=== PATIENT | female | born 1950 | race Caucasian/White ===

== ENCOUNTER 2018-02-21 16:41 | Outpatient (REF) | payer MEDICARE, MEDICAID, SELFPAY ==
--- NOTE | 2018-02-21 15:30 | PAPFT_PTH ---
PATIENT: Ángela Payan LOC: [facility] U#:[id number] AGE/SX: 67/F ROOM: RE02/21/[address]: Priya Rice MD, DC : 1950 BED: DIS: 02/21/2018 SPEC #: [id number] RECD: 02/21/18 18:30 STATUS: SHELBI REQ #: [id number] MICHAEL: 02/21/18 15:[address]: Priya Rice DEPT: [facility] Cytology RECD BY: Juliane Mike Tissues: 1 - CX/ENDOCX FOR PAP SMEARS Procedures: PAP THIN PREP/UVM Screening HPV DNA PROBE Comments: [id number]
== END 2018-02-21 17:01 ==
LOC: LBN 16:41
PROVIDERS: PCP Family Medicine; Visit Provider Family Medicine
DX: Z12.4 Encounter for screening for malignant neoplasm of cervix (principal); Z11.51 Encounter for screening for human papillomavirus (HPV)
CPT/HCPCS: 88142; 87624

== ENCOUNTER 2018-02-28 00:45 | Outpatient (CLI) | payer MEDICARE, MEDICAID, SELFPAY ==
--- NOTE | 2018-02-28 15:30 | DI.MAMMO_ITS ---
SYMPTOM/DIAGNOSIS: SCREENING MAMMOGRAM MAMMOGRAM: 02/28 Mammograms were interpreted according to the usual protocol including computer analysis with CAD system, tomosynthesis and C view imaging. The breasts are of moderate density with fairly symmetrical distribution of fibroglandular tissue. No dominant mass or clumped microcalcification is identified in either breast. The current examination is compared with previous examinations including 01/2017 and there has been no gross interval change in appearance in comparison with the previous studies. CONCLUSION: No specific evidence of malignancy at this time. Routine screening examinations are suggested at yearly intervals in this age group according to the ACS/ACR guidelines. Category 1, breast density category B. MQSA ASSESSMENT OF FINDINGS: Negative. Category 1. Patient will receive a letter notifying them of these results. BI-RADS category B. There are scattered areas of fibroglandular density.
[2018-02-28 15:46] LABS: ALT 26 U/L (12-78); AST 17 U/L (15-37); Albumin 4.3 g/dL (3.4-5.0); Alkaline Phosphatase 67 U/L (46-116); Anion Gap 9.4 mmol/L (3-11); BUN 14 mg/dL (7-18); Bilirubin, Total 0.5 mg/dL (0.2-1.0); CO2 27.6 mmol/L (21.0-32.0); Calcium 9.1 mg/dL (8.5-10.1); Chloride 101 mmol/L (98-107); Cholesterol 220 mg/dL (50-200); Glucose 100 mg/dL (70-100); HDL Cholesterol 41 mg/dL (40-60); LDL CHOLESTEROL 150 mg/dL (<100); Potassium 4.6 mmol/L (3.5-5.1); Sodium 138 mmol/L (136-145); TSH (W/Ref FT4) 2.98 uIU/mL (0.358-3.74); Total Protein 7.8 g/dL (6.4-8.2); Triglyceride 176 mg/dL (30-150)
== END 2018-02-28 01:05 ==
PROVIDERS: PCP Family Medicine; Visit Provider Family Medicine
DX: E78.5 Hyperlipidemia, unspecified (principal); R74.0 Nonspecific elevation of levels of transaminase and lactic acid dehydrogenase [LDH]; Z12.31 Encounter for screening mammogram for malignant neoplasm of breast; I10 Essential (primary) hypertension; E03.9 Hypothyroidism, unspecified; Z72.89 Other problems related to lifestyle
CPT/HCPCS: 36415; 77063; 77067; 80053; 80061; 83721; 84443

== ENCOUNTER 2018-05-12 01:34 | Outpatient (CLI) | payer MEDICARE, SELFPAY ==
--- NOTE | 2018-05-12 10:54 | DI.RAD_ITS ---
SYMPTOM/DIAGNOSIS: PRIMARY OA LT HIP, M15.12 HIP INJECTION: Fluoroscopy Time: 3 SEC Fluoroscopy was utilized by Dr. Handley during the performance of a left hip injection. Please refer to the procedure report for complete details.
[2018-05-12] MEDS: methylPREDNISolone ACETATE 80 MG/ML VIAL IM (10:56)
[2018-05-12] MEDS: Omnipaque 300 MG/ML 10 ML BTL IJ (10:56)
[2018-05-12] MEDS: Bupivacaine 0.5% Pres-Free 30 ML VIAL IJ (10:57)
--- NOTE | 2018-05-12 11:38 | W.PROCNOTE ---
Date of service: 05/12/18 Time of Service: 11:38 Procedure Note Date of procedure: 05/12/18 Procedure: Left Hip Injection with Fluoroscopic Guidance Surgeon/Proceduralist/Physician: Man Handley Procedure Diagnosis: Left Hip Osteoarthritis Procedure Indications: Ángela has had persistent pain of the LEFT hip and groin. Noninvasive measures have been tried and previous injection provided nearly 6 months relief. An injection under fluoroscopy was recommended. I had discussed the risks of the procedure and the patient elected to proceed. Procedure Description: Ángela was greeted in the flouroscopy room. The correct side was identified and the consent was reviewed with the patient and signed. The patient was then placed in the supine position on the fluoroscopy table. The LEFT hip was then prepped with Chloraprep. The anterolateral injection starting point was identiifed by bony landmarks and fluoroscopy. The skin and soft tissue in the tract of the injection was anesthetized with 1% Lidocaine. A spinal needle was then inserted deep into the hip joint at the level of the lateral femoral neck under fluoroscopic guidance. A small amount of Omnipaque solution was injected to confirm intraarticular placement. Once confirmed, the hip was injected with 6cc of 0.5% Bupivicaine and 80mg of Depo-Medrol. A bandaid was placed on the injection site. The patient tolerated the procedure well and noted improvement in pre-injection pain.
== END 2018-05-12 01:54 ==
PROVIDERS: PCP Family Medicine; Visit Provider Student in an Organized Health Care Education/Training Program
DX: M25.552 Pain in left hip (principal); M16.12 Unilateral primary osteoarthritis, left hip
CPT/HCPCS: 20610; 77002; J1040

== ENCOUNTER 2018-10-06 01:30 | Outpatient (CLI) | payer MEDICARE, SELFPAY ==
--- NOTE | 2018-10-06 07:06 | DI.RAD_ITS ---
SYMPTOM/DIAGNOSIS: LT HIP PAIN M25,552, LT HIP INJECTION FLUOROSCOPY: Fluoroscopy Time: 2 seconds Fluoroscopy was utilized by Dr. Handley during left hip injection. Hard copy shows intra-articular injection of the left hip.
[2018-10-06] MEDS: Omnipaque 300 MG/ML 10 ML BTL IJ (13:11)
[2018-10-06] MEDS: Bupivacaine 0.5% Pres-Free 10 ML VIAL 6 ML IJ (13:12)
[2018-10-06] MEDS: methylPREDNISolone ACETATE 80 MG/ML VIAL IM (13:14)
--- NOTE | 2018-10-06 15:43 | OPPNE_ITS ---
Date of service: 10/06/18 Time of Service: 10:42 Procedure Note Date of procedure: 10/06/18 Procedure: Left Hip Injection with Fluoroscopic Guidance Surgeon/Proceduralist/Physician: Man Handley Procedure Diagnosis: Left Hip Osteoarthritis Procedure Indications: Ángela has had persistent pain of the LEFT hip and groin. Noninvasive measures have been tried. To serve as both diagnostic and therapeutic, an injection under fluoroscopy was recommended initially and she received excellent results. Given return of her symptoms she desired a repeat injection.. I had discussed the risks of the procedure and the patient elected to proceed. Procedure Description: Ángela was greeted in the flouroscopy room. The correct side was i dentified and the consent was reviewed with the patient and signed. The patient was then placed in the supine position on the fluoroscopy table. The LEFT hip was then prepped with Chloraprep. The anterolateral injection starting point was identiifed by bony landmarks and fluoroscopy. The skin and soft tissue in the tract of the injection was anesthetized with 1% Lidocaine. A spinal needle was then inserted deep into the hip joint at the level of the lateral femoral neck under fluoroscopic guidance. A small amount of Omnipaque solution was injected to confirm intraarticular placement. Once confirmed, the hip was injected with 6cc of 0.5% Bupivicaine and 80mg of Depo-Medrol. A bandaid was placed on the injection site. The patient tolerated the procedure well and noted improvement in pre-injection pain.
== END 2018-10-06 01:50 ==
PROVIDERS: PCP Family Medicine; Visit Provider Student in an Organized Health Care Education/Training Program
DX: M25.552 Pain in left hip (principal); M16.12 Unilateral primary osteoarthritis, left hip
CPT/HCPCS: 20610; 77002; J1040

== ENCOUNTER 2019-02-23 10:32 | Outpatient (CLI) | payer MEDICARE, MEDICAID, SELFPAY ==
[2019-02-23 13:25] LABS: ALT 26 U/L (14-59); AST 16 U/L (15-37); Albumin 4.2 g/dL (3.4-5.0); Alkaline Phosphatase 53 U/L (46-116); Anion Gap 7.4 mmol/L (3-11); BUN 23 mg/dL (7-18); Bilirubin, Total 0.3 mg/dL (0.2-1.0); CO2 30.6 mmol/L (21.0-32.0); CREATININE 0.84 mg/dL (0.55-1.02); Calcium 9.4 mg/dL (8.5-10.1); Calculated LDL 132 mg/dL; Chloride 102 mmol/L (98-107); Cholesterol 200 mg/dL (50-200); GGT 51 U/L (5-55); Glucose 95 mg/dL (70-100); HDL Cholesterol 37 mg/dL (40-60); Potassium 4.4 mmol/L (3.5-5.1); Sodium 140 mmol/L (136-145); TSH (W/Ref FT4) 1.99 uIU/mL (0.36-3.74); Total Protein 7.3 g/dL (6.4-8.2); Triglyceride 158 mg/dL (30-150)
== END 2019-02-23 10:52 ==
PROVIDERS: PCP Family Medicine; Visit Provider Family Medicine
DX: E03.9 Hypothyroidism, unspecified (principal); I10 Essential (primary) hypertension; R74.0 Nonspecific elevation of levels of transaminase and lactic acid dehydrogenase [LDH]
CPT/HCPCS: 36415; 80053; 80061; 82977; 84443

== ENCOUNTER 2019-07-17 14:38 | Outpatient (CLI) | payer MEDICARE, SELFPAY ==
--- NOTE | 2019-07-17 14:30 | DI.RAD_ITS ---
EXAM: XR PELVIS AP INDICATION: PRE LESTER PLANNING. TECHNIQUE: 2D digital imaging was performed. FINDINGS: In the left hip, there are degenerative changes characterized by joint space narrowing, subchondral s clerosis, and periarticular spurring. There has been progression of the degenerative changes since 0 08/30/2017. The right hip joint space is well maintained. Vascular calcifications are seen in the so ft tissues IMPRESSION: Moderately severe degenerative changes in the left hip.
== END 2019-07-17 14:58 ==
PROVIDERS: PCP Family Medicine; Referring Provider Family Medicine; Visit Provider Student in an Organized Health Care Education/Training Program
DX: M25.552 Pain in left hip (principal); M16.12 Unilateral primary osteoarthritis, left hip; I10 Essential (primary) hypertension
CPT/HCPCS: 99213; 72170

== ENCOUNTER 2019-08-07 09:53 | Outpatient (CLI) | payer MEDICARE, MEDICAID, SELFPAY ==
[2019-08-07 12:08] LABS: HCT 44.9 % (36.0-46.0); HGB 14.5 g/dL (12.0-15.5); Mean Corp. HGB Concentration 32.3 g/dL (32.0-36.0); Mean Corpuscular Hemoglobin 30.1 pg (27.0-33.0); Mean Corpuscular Volume 93.2 fL (80-95); Mean Platelet Volume 9.6 fL (8.0-11.0); Platelet Count 381 x1000/uL (130-400); RBC 4.82 m/cumm (4.00-5.20); RBC Distribution Width 14.3 % (11.7-14.6); White Blood Cell Count 5.53 k/cumm (4.4-10.8)
[2019-08-07 12:47] LABS: Anion Gap 8.7 mmol/L (3-11); BUN 18 mg/dL (7-18); CO2 30.3 mmol/L (21.0-32.0); CREATININE 0.73 mg/dL (0.55-1.02); Calcium 8.9 mg/dL (8.5-10.1); Chloride 102 mmol/L (98-107); Glucose 81 mg/dL (74-106); Potassium 4.2 mmol/L (3.5-5.1); Sodium 141 mmol/L (136-145)
== END 2019-08-07 10:13 ==
PROVIDERS: PCP Family Medicine; Visit Provider Nurse Practitioner
DX: I10 Essential (primary) hypertension (principal); Z01.818 Encounter for other preprocedural examination
CPT/HCPCS: 36415; 80048; 85027

== ENCOUNTER 2019-10-20 04:00 | Outpatient (CLI) | payer MEDICARE, SELFPAY ==
[2019-10-20 10:20] LABS: HGB 14.1 g/dL (12.0-15.5); Mean Corp. HGB Concentration 32.8 g/dL (32.0-36.0); Mean Corpuscular Hemoglobin 29.9 pg (27.0-33.0); Mean Corpuscular Volume 91.1 fL (80-95); Mean Platelet Volume 9.1 fL (8.0-11.0); Platelet Count 386 x1000/uL (130-400); RBC 4.72 m/cumm (4.00-5.20); RBC Distribution Width 14.5 % (11.7-14.6); White Blood Cell Count 5.88 k/cumm (4.4-10.8)
[2019-10-20 11:00] LABS: Anion Gap 7.1 mmol/L (3-11); BUN 15 mg/dL (7-18); CO2 28.9 mmol/L (21.0-32.0); CREATININE 0.82 mg/dL (0.55-1.02); Calcium 9.3 mg/dL (8.5-10.1); Chloride 101 mmol/L (98-107); Glucose 80 mg/dL (74-106); Potassium 4.5 mmol/L (3.5-5.1); Sodium 137 mmol/L (136-145)
== END 2019-10-20 04:20 ==
PROVIDERS: PCP Family Medicine; Visit Provider Student in an Organized Health Care Education/Training Program
DX: M25.552 Pain in left hip (principal); M16.12 Unilateral primary osteoarthritis, left hip; Z01.818 Encounter for other preprocedural examination; Z01.812 Encounter for preprocedural laboratory examination
CPT/HCPCS: 36415; 80048; 85027; 86850; 86900; 86901

== ENCOUNTER 2019-10-25 06:06 | Observation (INO) | payer MEDICARE, SELFPAY ==
[2019-10-25] VITALS (12 sets, daily range): BP systolic 80–137; BP diastolic 40–81; PULSE 54–71; RESP 12–20; TEMP 35.9–36.8; O2SAT 93–98
[2019-10-25] MEDS: Celecoxib 200 MG CAP 400 MG PO (06:39)
[2019-10-25] MEDS: Acetaminophen 500 MG TAB 1000 MG PO ×2 (06:39→11:55)
[2019-10-25] MEDS: Lactated Ringers 1,000 ML 80 ML IV (06:40)
--- NOTE | 2019-10-25 07:17 | HPE_ITS ---
Date of service: 10/25/19 Time of Service: 07:17 Assessment and Plan Assessment and plan (1) Osteoarthritis of left hip: Status: Acute Assessment and plan: Ángela is a 69yo with severe OA of the left hip. She has exhausted conservative options. I had a long discussion in regards to surgical replacement of the hip. I went over in detail the possible complications of hip replacement. These include but are not limited to bleeding, infection, pain, stiffness, weakness, damage to nerves (especially the lateral femoral cutaneous nerve), damage to vessels, damage to muscle and tendon, fracture, leg length inequality, wound healing complications, instability, dislocation, and blood clot. Questions were answered. I again expressed that this is a surgery to improve functional quality of life. After a review of the presented information and risks, Ángela desired to proceed. Qualifiers: Osteoarthritis type: primary Qualified Code(s): M16.12 - Unilateral primary osteoarthritis, left hip History of Present Illness History of Present Illness Chief Complaint: Left Hip Pain Narrative: Ángela is a 69yo female who has known arthritis with deformity of the left hip. She has had persistent pain, limited motion, and limited function. She was scheduled for surgery in July but it was cancelled due to stephens virus. She has had no chnages in her health. She has quarantined after her Covid-19 test which was negative. 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 Sister No problems noted. Brother No problems noted. Brother No problems noted. Son Asthma Daughter No problems noted. Paternal Grandfather , age 60 Stroke Maternal Grandmother , Age 56 Stroke Paternal Grandmother , age 60 Stroke Social History Smoking/Tobacco Use Status: Former Tobacco Use Quit Date: 05/31/09 Second Hand Exposure: Yes Alcohol Intake: current Alcohol Intake frequency: 0-2 drinks per day Alcohol type: wine Drug use: Never Substance use type: does not use Caregiver/Support person: No Household members: none Housing: house Do you need help understanding health information?: Never Pets and animals: No Sexually active: No Do you think of yourself as: straight/heterosexual Current gender identity: female What is your relationship status?: How often do you talk on the phone with friends or family?: three or more times per week How often do you get together with friends or relatives?: three or more times per week How often do you attend sikh or voodoo services?: 4 or more times per year Do you belong to any clubs or organized social groups?: yes Panel score (0-1 are the most socially isolated patients): 3 What type of physical activity do you participate in: walking and bicycling Duration: 45-60 minutes/day Frequency: 3-4 times per week Francoise/Presybeterian: Tenriism Special francoise needs: No Seatbelt use: always Helmet use: Yes Helmet use: always Drive intox or ride w/intox 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 Do you feel safe in your relationship?: Yes Meds Home Medications and Allergies Home Medications Medication Instructions Recorded Confirmed Type aspirin [Aspirin Low-Strength] 1 tab PO DAILY tab.chew 09/01/12 10/25/19 History calcium carbonate-vitamin D3 1 tab PO DAILY 09/01/12 10/25/19 History [Caltrate with Vitamin D3] multivitamin 1 tab PO DAILY 09/01/12 10/25/19 History levothyroxine 50 mcg tablet 50 mcg PO DAILY #90 tab-cap 02/23/19 10/25/19 Rx lisinopril 20 mg tablet 20 mg PO DAILY #90 tab-cap 02/23/19 10/25/19 Rx rosuvastatin 20 mg tablet 20 mg PO DAILY #90 tab-cap 02/23/19 10/25/19 Rx meloxicam 7.5 mg tablet 7.5 mg PO DAILY PRN 08/04/19 10/25/19 History Allergies Allergy/AdvReac Type Severity Reaction Status Date / Time No Known Allergies Allergy Unverified 10/25/19 06:14 Exam Const General: cooperative, healthy appearing, comfortable and no acute distress Resp Effort & Inspection: normal respiratory effort Auscultation: clear to auscultation bilaterally Cardio Rate: regular rate Rhythm: regular rhythm Extrem Other: Left hip has no skin changes. Groin folds without infection, excoriation, or concern. Left hip limited and painful ROM. LLE about 5mm shorter than the right. SILT Femoral, LFCN, and Sciatic nerve distributions. +DP/PT pulse. Results Last Vital Signs Temp 36.5 C 10/25/19 06:18 Pulse 71 10/25/19 06:18 Resp 18 10/25/19 06:18 BP 128/76 10/25/19 06:18 Pulse Ox 98 10/25/19 06:18
[2019-10-25] MEDS: ceFAZolin 2 GM/50 ML BAG IVPB (07:33)
[2019-10-25] MEDS: Bupivacaine 0.25% Pres-Free 30 ML VIAL (08:39)
[2019-10-25] MEDS: Ketorolac 30 MG/ML VIAL (08:40)
--- NOTE | 2019-10-25 09:10 | DI.RAD_ITS ---
EXAM: XR HIP LT IN OR CLINICAL HISTORY: Osteoarthritis of left hip. TECHNIQUE: 2D and realtime digital imaging was performed. CONTRAST MATERIAL: None COMPARISON: No exams were available for comparison FINDINGS: Fluoroscopy was provided in the OR. Hard copy image shows placement of a left total hip prosthesis which appears well aligned. FLUORO TIME: 37.4 seconds RADIATION DOSE DELIVERED:
--- NOTE | 2019-10-25 10:43 | IN_ITS ---
Date of service: 10/25/19 PT Notes Visit Reasons: (L) DJD HIP Physical Therapy Inpatient Initial Evaluation Date: 10/25/2019 Referring Doctor: Mna Handley MD PT Orders: PT CONSULT: Status post Ortho surgery. Status post L LESTER. Precautions: Fall. Standard. WBAT L LESTER. Patient Profile/Admitting Diagnosis: Ángela is a 69-year-old patient with primary osteoarthritis on the left hip and is status post total hip arthroplasty on postoperative day 0. 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 She was independent with all aspects of ADLs prior to the surgery although she states that for the past several months she has been using a front wheeled walker mostly in the morning so she feels very stiff and hurting much. Equipment Owned/DME: Front wheeled walker Subjective: Patient reported mild lightheadedness once she sat on the edge of the bed but reported it to be going away once she was up and moving. She states that she has had no falls in the past year or so. Objective: General Observation: Patient resting in bed. Bilateral TEDS on. IV in the right UE. Mental Status: Alert and oriented x4 Pain: 6/10 pain on the left hip at rest and with movement ROM: Right Upper Extremity: Shoulder Flexion WFL. Shoulder abduction WFL. Elbow flexion WFL. Wrist flexion WFL. Opening and closing of hand WFL. Left Upper Extremity: Shoulder Flexion WFL. Shoulder abduction WFL. Elbow flexion WFL. Wrist flexion WFL. Opening and closing of hand WFL. Right Lower Extremity: Hip flexion WFL. Hip abduction WFL. Knee flexion WFL. Ankle dorsiflexion WFL. Ankle plantarflexion WFL. Left Lower Extremity: Hip flexion WFL. Hip abduction WFL. Knee flexion WFL. Ankle dorsiflexion WFL. Ankle plantarflexion WFL. Strength: Right Upper Extremity: Shoulder flexors 5/5. Shoulder abductors 5/5. Elbow flexors 5/5. Elbow extensors 5/5. Faucets Assembler strong. Left Upper Extremity: Shoulder flexors 5/5. Shoulder abductors 5/5. Elbow flexors 5/5. Elbow extensors 5/5. Faucets Assembler strong. Right Lower Extremity: Hip flexors 5/5. Hip abductors 5/5. Knee flexors 5/5. Knee extensors 5/5. Ankle dorsiflexors 5/5. Ankle plantarflexors 5/5. Left Lower Extremity:Hip flexors 4/5. Hip abductors 4/5. Knee flexors 4/5. Knee extensors 4/5. Ankle dorsiflexors 5/5. Ankle plantarflexors 5/5. Sensation: Intact as to pain and pressure on bilateral lower extremities. Reported some remaining numbness on bilateral gluteal area that did not affect overall safety of ambulation test today. Bed Mobility/Transfers: Rolling independent Supine to sit independent with HOB flat Sit to supine independent with HOB flat Sit to stand contact-guard assist using BUE for support, minimal verbal cues for hand placement given, requires use of front wheeled walker Stand to sit contact-guard assist using BUE for support, minimal verbal cues for hand placement given Bed to chair contact-guard assist using BUE for support, minimal verbal cues for hand placement given, requires use of front wheeled walker Chair to bed contact-guard assist using BUE for support, minimal verbal cues for hand placement given, requires use of front wheeled walker Gait: Patient tolerated level surface ambulation of 150 feet using a front wheeled walker with WBAT on the left LE requiring only contact-guard assist with reciprocal swing through gait pattern. Reported 6/10 pain on the left hip. Minimal lightheadedness reported. Balance: Static Sitting: Normal Dynamic Sitting: Normal Static Standing: Fair Dynamic Standing: Fair Special Tests: Mobility Limitations Standardized Measure [employer] AM-PAC 6 clicks Basic Mobility Inpatient Short Form: Raw Score: 19 CMS Score: 42% deficit Informed Consent/Education: Patient instructed in purpose of PT consult and plan of care. Assessment: Patient demonstrates need for an assistive device for all mobility ADL performance, risk for falls, unsteadiness on feet, and balance impairment resulting from postoperative status. Ángela is a 69-year-old patient with primary osteoarthritis on the left hip and is status post total hip arthroplasty on postoperative day 0. Patient presents with clinical signs and symptoms consistent with current/admitting diagnoses that have resulted to mobility limitations, gait instability, generalized weakness, and impairment of motor control as demonstrated by the following impairment level findings: 1. Decreased strength to L LE major muscle groups 2. Impaired standing balance 3. Impaired activity tolerance Impairments are contributing to the following functional limitations: 1. Inability to safely ambulate without assistive device and physical assistance 2. Increase completion time for mobility ADL performance 3. Increased fall risk 4. Inability to negotiate steps alone safely Patient is assessed as a 15548 moderate complexity based on the following: History: 69-year-old female with impairment level findings, functional limitations, and past medical history as listed above Examination: Demonstrable impairment in strength, balance, and mobility level with underlying impairments and functional limitations as documented above Presentation: Stable Decision Makin moderate Goals: Goals X 3 days 1. Sit-Stand independent 2. Stand-Sit independent 3. Bed-Chair independent 4. Chair-Bed independent 5. Independent gait on level surface with use of least restrictive device for at least 300 feet without report of pain nor dyspnea 6. Independent stair negotiation while holding onto bilateral rails for at least 10 steps without report of pain nor dyspnea 7. Independent with home exercise program 8. Good static and dynamic standing balance/tolerance Plan of Care/Treatment Plan: 1-2x/day, 7 days/week x 1 week. Plan of care has been reviewed with the AVIONICS SYSTEMS ENGINEER providing the service under Physical Therapy direction. Initiate Physical Therapy intervention for strengthening, bed mobility, transfers, gait, stairs, balance training, use of assistive device. PT Intervention: Session today consisted of initial physical therapy evaluation as well as education and training on safe mobility performance using a front wheel walker. Patient was also trained on performing seated level exercises consisting of quadriceps sets x 5, gluteal set x5, ankle pumps x20, long arc quads x10, and seated hip flexion x10 with good response. DISCHARGE RECOMMENDATIONS: Home when medically cleared. No equipment needs at this time. May benefit from skilled physical therapy services according to orthopedic surgeon's timeline recommendations. Patient will be educated and trained on home exercise program per LESTER exercise protocol in preparation for outpatient physical therapy services. TREATMENT CODE/TIME: [id number] x 25 minutes, [id number] [id number] x 17 minutes beginning at 10:43 AM. Thank you very much for this referral. Mary Gama PT, DPT, CLT [facility] [place], [place]
[2019-10-25] MEDS: oxyCODONE 5 MG TAB PO ×2 (13:29→14:13)
--- NOTE | 2019-10-25 13:44 | PTTR_ITS ---
Date of service: 10/25/19 Time of Service: 13:44 PT Notes Visit Reasons: (L) DJD HIP Inpatient Physical Therapy Treatment Note [facility] Date: 10/25/2019 PRECAUTIONS: WBAT L SUBJECTIVE: Ángela reports that she is having some pain, but is hopeful that she will be discharged to home later today. OBJECTIVE: PAIN: Patient complained of discomfort in L hip area prior to PT session, but reports a decrease in pain following gait training BED MOBILITY/TRANSFERS Sit-stand: S Stand-sit: S GAIT Assistive Device: FWW Weight bearing: WBAT L Assist: SBA Distance: 260' STAIRS: Up/down 2?6 and 3?4 using B rails and a step to pattern with s upervision ASSESSMENT: Patient tolerated session well, with reports of decreased L hip discomfort following gait training. She was able to tolerate a progression in gait distance with FWW support, utilizing step through gait pattern. PLAN: As per primary PT TREATMENT CODE/TIME: 15 minutes; [id number]
--- NOTE | 2019-10-25 15:06 | W.PM.DS.N ---
Date of service: 10/25/19 Time of Service: 15:06 DS: Diagnosis Discharge Diagnosis (1) Osteoarthritis of left hip: Status: Acute Discharge Plan Disposition Patient Disposition: HOME Condition: Good Discharge Details Reason For Visit: (L) DJD HIP Admit Date/Time: 10/25/19 06:06 Admit Provider: Man Handley Attending Provider: Man Handley Primary Care Provider: Priya Rice [facility] Course Hospital Course: Patient was admitted to the medical/surgical floor following the procedure. The surgery was tolerated well without any notable medical, surgical, or anesthetic complications. Mobilization began postoperatively. Vitals were stable. Physical therapy worked with the patient and was cleared for discharge home. No acute medical issues. Pain was controlled on oral regimen. Home Meds and New Rx's Prescriptions: New aspirin 81 mg tablet,delayed release (DR/EC) 81 mg PO BID Qty: 60 RF: 0 acetaminophen 500 mg tablet 1,000 mg PO Q8H PRN (Reason: pain) Qty: 90 RF: 3 pantoprazole 40 mg tablet,delayed release (DR/EC) 40 mg PO DAILY Qty: 30 RF: 0 oxycodone 5 mg tablet 5 mg PO Q4H Qty: 18 RF: 0 Continued levothyroxine 50 mcg tablet 50 mcg PO DAILY Qty: 90 RF: 12 lisinopril 20 mg tablet 20 mg PO DAILY Qty: 90 RF: 5 rosuvastatin [Crestor] 20 mg tablet 20 mg PO DAILY Qty: 90 RF: 4 multivitamin 1 EACH tablet 1 tab PO DAILY RF: 0 calcium carbonate-vitamin D3 [Caltrate with Vitamin D3] 1 EACH tablet 1 tab PO DAILY RF: 0 Changed meloxicam 7.5 mg tablet 7.5 mg PO BID Qty: 60 RF: 2 Discontinued aspirin [Aspirin Low-Strength] 81 MG tablet,chewable 1 tab PO DAILY RF: 0 Discharge Instructions Additional Instructions: Dr. Handley's Total Hip Discharge Instructions Activity: The most important activity is to walk. You should try to take short walks a few times a day. You have no restrictions on movement or positioning, but do not try to force what you do. You will find some stiffness and weakness with hip flexion (lifting your knee). Do not try to strengthen this too early, continue to practice walking and stairs and this will come. - Outpatient physical therapy can be helpful to help return you to a normal gait and improve your flexibility and strength. This can start around 2 weeks. For most patients, it?s not necessary. Usually this is determined at the time of discharge or at the first post-operative visit. - You should wear the KEMAR hose on both legs for 2 weeks. You may remove those at night. These prevent blood pooling and swelling. Dressing: Keep the surgical dressing in place for at least one week, although it may stay in place untill follow-up. It may get wet after 3 days but avoid soaking the dressing. If it gets wet, just lightly pat dry. Most people prefer to cover the dressing with some ClingWrap, Saran Wrap, to keep it dry. After the first week it may be removed if desired and then replaced with light gauze and tape or nothing. It is important to always keep some gauze or the dressing between skin folds, especially when you are sitting, so the incision is not folded over on itself at the belly fold. Medications: - You should take Tylenol and an anti-inflammatory Meloxicam as your primary pain control medications - You have been prescribed a stronger pain medication Oxycodone for breakthrough pain, take as needed as prescribed. - You have also been prescribed a stomach acid reduction agent Pantoprozole to help reduce stomach acid and reflux. - You will be taking Aspirin 81mg twice a day for DVT prevention unless instructed otherwise. - If you have constipation you should take Colace or Miralax (both [id number]). It takes most people 3-4 days to have a bowel movement. Follow-up: 2 weeks. If you have any acute concerns or questions, please do not hesitate to contact the office at [phone]. You may contact Dr. Handley with any questions after hours through the hospital at [phone] or on his cell phone at [phone]. Referrals: Man Handley MD [ [facility] STAFF PHYSICIAN] - Activity:: Activity as Tolerated Equipment/Supplies:: Walker Diet:: As Tolerated Discharge Orders Discharge Orders: Discharge Order (Routine); Ordered 10/25/19 Ordered By: Man Handley DS: Summary Status at Discharge Functional status at discharge: uses cane/walker Overall status at discharge: patient is progressing back to baseline Mental Status: mental status grossly normal Speech and Movement: speech and movement normal Mood: congruent mood Affect: normal affect Exam Psych Mental Status: mental status grossly normal Speech and Movement: speech and movement normal Mood: congruent mood Affect: normal affect DS: Data Vitals/I&O Vitals and I&O: Vital Signs Temperature 36.1 C L 10/25/19 12:41 Temperature Source Tympanic 10/25/19 12:41 Pulse 67 10/25/19 12:41 Pulse Rhythm Regular 10/25/19 06:18 Respiratory Rate 18 10/25/19 12:41 Respiratory Effort 10/25/19 06:18 Blood Pressure 102/65 10/25/19 12:41 Pulse Oximetry 96 10/25/19 12:41 Oxygen Delivery Method Room Air 10/25/19 12:41 Oxygen Flow Rate 0 10/25/19 12:41 Pain Level 6 10/25/19 14:13 Intake & Output 10/24/19 10/25/19 10/25/19 23:59 11:59 23:59 Intake Total 620 / 860 240 / 860 Output Total 300 / 500 200 / 500 Balance 320 / 360 40 / 360 Weight 73.3 kg Intake: IV 620 / 620 Oral 240 / 240 Output: Urine 200 / 200 Estimated Blood Loss 300 / 300 Other: Urine Color Yellow Emesis Description None Voiding Methods Toilet [facility] Medical History Alcohol intake above recommended sensible limits (Chronic 11/21/13) elevated GGT, ASL, ALT Cervical high risk HPV (human papillomavirus) test positive (Chronic 03/15/17) NILM/(+)HR HPV 2015, 2016 Elev transaminase/LDH (Chronic) History of pre-eclampsia (Resolved) History of pre-eclampsia (Inactive ~1968) 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 Sister No problems noted. Brother No problems noted. Brother No problems noted. Son Asthma Daughter No problems noted. Paternal Grandfather , age 60 Stroke Maternal Grandmother , Age 56 Stroke Paternal Grandmother , age 60 Stroke Social History Smoking/Tobacco Use Status: Former Tobacco Use Quit Date: 05/31/09 Second Hand Exposure: Yes Alcohol Intake: current Alcohol Intake frequency: 0-2 drinks per day Alcohol type: wine Drug use: Never Substance use type: does not use Caregiver/Support person: No Household members: none Housing: house Do you need help understanding health information?: Never Pets and animals: No Sexually active: No Do you think of yourself as: straight/heterosexual Current gender identity: female What is your relationship status?: How often do you talk on the phone with friends or family?: three or more times per week How often do you get together with friends or relatives?: three or more times per week How often do you attend orthodoxy or christian services?: 4 or more times per year Do you belong to any clubs or organized social groups?: yes Panel score (0-1 are the most socially isolated patients): 3 What type of physical activity do you participate in: walking and bicycling Duration: 45-60 minutes/day Frequency: 3-4 times per week Francoise/Congregation: [employer] Special francoise needs: No Seatbelt use: always Helmet use: Yes Helmet use: always Drive intox or ride w/intox fire truck driver: No Do you feel safe in your relationship?: Yes
[2019-10-25] MEDS: ceFAZolin 1 GM/50 ML BAG IVPB (15:33)
--- NOTE | 2019-10-25 20:18 | W.PM.OP ---
Date of service: 10/25/19 Time of Service: 09:41 Operative Note Operative Note DATE OF PROCEDURE: 10/25/19 PRE-OP DIAGNOSIS: Left Hip Osteoarthritis POST-OP DIAGNOSIS: same PROCEDURE: Left Anterior Total Hip Arthroplasty SURGEON: Man Handley PADDING MACHINE OPERATOR: Carla Guerra ANESTHESIA: spinal ESTIMATED BLOOD LOSS: 200 PATHOLOGY: none sent COMPLICATIONS: None Patient was transported to: PACU Patient's condition: stable Implants: 1. Depuy Drift Acetabular Component, 50mm 2. Depuy Acetabular Liner, [id number] 3. Depuy Corail High Offset Femoral Stem, Size 12 4. Depuy Altrx Ceramic Femoral Head, Size 32+5mm Indications: I have seen Ángela in clinic for symptoms of hip arthritis, confirmed with radiographic findings. Ángela has exhausted nonoperative methods and was having significant limitations in daily function and desired better function and less pain. I discussed the technical details of a hip replacement. I explained the risks of the procedure to include, but not limited to, bleeding, infection, pain, stiffness, fracture, damage to nerves and vessels, damage to muscles and tendons, loosening, instability, leg length inequality, need for repeat procedure, blood clot and cardiopulmonary demise. Despite these risks, Ángela elected to proceed. Findings: There was significant signs of arthritis throughout the hip. There was notable irregularity about the femoral head and neck osteophytes with complete loss of superomedial head cartilage. Procedure Description: Ángela was greeted in the preoperative holding area where the correct side was identified and marked. The consent was reviewed with the patient and signed. The history and physical was updated. All questions were answered. She was taken back to the operating room. A spinal anesthestic was then administered. The patient was placed into the supine position on the operating room table. The patient was then positioned onto the ARCH table. Both feet were wrapped with Webrill cotton wrap along with Coban. The feet were placed in specialized boots for the ARCH table, well seated within the boot and secured. SCDs were applied. The patient was then slid down onto a peroneal post and the nonoperative leg was secured in a leg lechuga attached to the table. The operative side was placed into the ARCH table attachment and bed height and positioning was secured. A preoperative AP pelvis was obtained to serve as a reference for determining leg lengths. Prophylactic antibiotics in the form of cefazolin were administered. 1g of Tranxemic Acid was given intravenously within 30 minutes of incision. The left leg was then prepped with Chloraprep and draped in a standard fashion. A second prep with Chloraprep was performed prior to placement of a shower-curtain type drape with Iodine impregnated skin protection. A timeout to confirm correct identity, side and site, procedure, allergies, anesthesia, and medical concerns was performed. An obliquely oriented incision was made starting lateral to the ASIS and running distal over the Tensor Fascia Caroline (TFL) muscle belly toward the fibular head, approximately 10cm. The skin and soft tissue was dissected sharply, through Geneva?s fascia, and to the fascia of the TFL. With the fascia and superior border of the IT band identified, the fascia was incised with a new knife just above any perforators from the IT band. The TFL muscle belly was bluntly dissected away from the fascia and moved laterally. The fat between TFL and rectus was identified to ensure the dissection was not within the TFL. Blunt dissection created space between abductors and the capsule and retractor was placed over the lateral femoral neck. The fibers of the rectus femoris tendon were identified and these were freed from the anterior capsule. A second cobra retractor was placed around the medial femoral neck. The TFL was further retracted laterally to show the deep fascia. Careful dissection through this layer identified three main crossing vessels of the lateral femoral circumflex. These were cauterized in multiple locations and then cut without any noticeable bleeding. The TFL was further released bluntly from the deep fascia to expose anterior hip capsule and fat the Pan orthopaedic retractor was then placed beneath the TFL and against sartorius and medial soft tissues to protect and retract the soft tissues. A T-capsulotomy was then performed starting at the superior lateral acetabulum and moving distally to the intertrochanteric ridge. These capsular flaps were tagged with a No. 1 Ethibond and elevated from within. The capsular flaps were released to the shoulder of the lateral neck and to the lesser trochanter to give excellent visualization of the proximal femur. A neck osteotomy was performed using an oscillating saw based on preoperative templates. This cut started in the shoulder and of the lateral neck and exited medially. The saw was at all times directed medially to avoid injury to the greater trochanter. 6cm of traction was applied to the leg and the osteotomy opened. The femoral head was removed with a corkscrew, making sure to protect the TFL on its exit. This was measured on the back table to determing the starting reamer size. Portions of the rectus obscuring visualization were minimally elevated off the superior acetabulum. An anterior retractor was placed over the anterior wall between capsule and labrum and attached to the Gripper retraction system. A posterior retractor was placed similarly. This provided excellent visualization. The contents of the cotyloid fossa were removed with electrocautery and the labrum was removed with a knife. There was significant chondromalacia of the superior acetabulum. Acetabular reaming began with a 46mm reamer. This first reaming was directed anterior to posterior and medial to get down to the true floor. This was inspected and reamed until the true floor was reached. The anterior retractor was then released and entry and exit was provided by traction on the capsular flaps. I then reamed sequentially up to a 50mm reamer where good fit was obtained. The larger reamers were oriented based on anatomical reference of the anterior and lateral etienne to ensure proper abduction and anteversion. Positioning and size was confirmed with the fluoroscopy. A 50mm Depuy Drift acetabular component was selected. The deep tissues were irrigated. The acetabular component was then impacted in a position. However, did not have good purchase as expected based on the acetabular reamers. Therefore, I remove the acetabular component. It was cleaned on the back table. I then re-reamed starting with a 48 mm reamer. This reaming was slightly deeper than the previous reaming so to see the cup. I then reamed to the 49 mm reamer but did not go up to the 50 mm this time. The acetabular component was then inserted once again with much better purchase. Positioning goals were about 40-45 degrees of abduction and 15-20 degrees of anteversion, using the patient?s anatomy as the ultimate landmark. Fluoroscopy was used to confirm this. There was excellent supervisor shipfitters of the acetabular component and the inserting handle was removed. A primary acetabular screw was placed into the ilium by drilling through one of the holes in the acetabular component. This was measured and an approrpriately sized screw was placed with excellent purchase. It was checked not to be proud. A second screw was placed in a similar fashion. The acetabular liner, Depuy 50 x 32 mm polyethylene liner, was inserted and lined up with the tines of the acetabular component. There was no soft tissue interposition. The liner was then impacted into position and confirmed to be well-seated. A portion of the kymberly-articular cocktail was then injected around the acetabulum into the capsule and periosteum. This cocktail consisted of 50cc of 0.25% Bupivicaine and 20cc of Exparel, expanded to a total of 120cc. Traction was released from the femur. The leg was rotated to 120 degrees. Any remaining medial capsule was released until the lesser trochanter was easily palpable. A Contreras retractor was placed medially. The lateral capsule was further released into the shoulder to allow access to the greater trochanter. A Contreras retractor was placed over the greater trochanter which allowed the trochanter to flip in front of the capsule for excellent exposure. The leg was brought down into maximal extension and 20 degrees of adduction while ensuring there was no impingement on the acetabulum. Any remnant capsule within the trochanter was released. Piriformis and obturator externis were identified and protected. There was excellent access to the proximal femur. The lateral neck remnant was removed with a rongeur. A blunt canal probe was used to identify the canal and trajectory for later broaching. A box osteotome initiated the broach course. A small curved rasp and a curved curette were used to work laterally. Broaching then began with a size 8 Corail broach. This was inserted manually around the trochanter and into the canal before mallet blows. The broach was seated to a few millimeters below the cut level based on the neck cut and the preoperative template. Sequential broaching was continued with the OwnerListenscise pneumatic broaching device until a tight fit was obtained with good rotational control of the femur. A trial standard neck was inserted along with a +5 trial head. The leg was brought out of extension and adduction and then reduced with traction and internal rotation. The leg was marginally stable anteriorly in a position of 30 degrees of extension and 90 degrees of external rotation. The hip was reduced and stay reduce but was able to be dislocated with minimal traction and force. Fluoroscopy was used to ensure there was no fracture and the stem was seated well. Leg lengths were checked with an AP pelvis and pelvic reference points. I[employer]Trust navigation system was used to confirm appropriate positioning and leg length and offset. While the x-ray looked as I had planned it, it obviously did not seem to match up based on the feel of the hip with reduction. The joint point navigation system also identified under offset while regaining most of the leg length discrepancy. Initial goals were to gain 5 mm of leg length due to preoperative shortening. Therefore, based on softer tables, I elected to proceed with a high offset stem to gain the extra abduction moment of offset and to improve stability. Once content with the desired offset and leg lengths, the leg was brought back into extension, external rotation and adduction. The periosteum and surrounding tissue was injected with remaining portion of the kymberly-articular cocktail. The proximal femur was irrigated as well as the deep tissues. The Depuy Corail high offset stem, size 12, was then manually inserted into the proximal femur making sure to control rotation. It was then malleted into position with light blows, giving breaks to allow bone expansion and decrease risk of fracture. The selected Depuy Altrx Ceramic Head, size 32+5 mm, was then placed onto the clean and dry trunnion and secured with impaction onto the tapered fit. The leg was brought back out of extension and adduction and reduced with traction and internal rotation. Stability was confirmed with no shuck at 90 degrees of external rotation and 30 degrees of extension. No impingement through range of motion arc. Final x-ray images were obtained with fluoroscopy to confirm adequate positioning and no intraoperative fracture. The deep tissues were thoroughly irrigated with Irrisept chlorhexadine solution. The second dose of TXA 1g was administered intravenously. The capsule was then reapproximated with the previously placed Ethibond sutures. The TFL fascia was finally closed with a No. 2 Stratafix, barbed suture. Deep tissues were then reapproximated with 0 Vicryl and a running 2-0 Vicryl. The skin was closed with a running 4-0 Monocryl in a subcuticular fashion. This was reinforced with skin glue. A Mepilex silver dressing was applied. At the end of the case, all counts were correct. Ángela was transferred to the hospital bed without difficulty and suffering no apparent complication. Ángela has a good prognosis. Physical therapy will start today and without restrictions, weight-bearing as tolerated. Aspirin 81mg BID will be used for DVT prophylaxis.
--- NOTE | 2019-10-26 16:26 | PT.INDS ---
Date of service: 10/26/19 PT Notes Visit Reasons: (L) DJD HIP Inpatient Physical Therapy Discharge Summary Dates: 10/26/2019 Dates of Service: 10/25/2019 only Referring Doctor: Man Handley MD PT Orders: PT CONSULT: Status post Ortho surgery. Status post L LESTER. Precautions: Fall. Standard. WBAT L LESTER. Patient Profile/Admitting Diagnosis: Ángela is a 69-year-old patient with primary osteoarthritis on the left hip and is status post total hip arthroplasty on postoperative day 0. 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 She was independent with all aspects of ADLs prior to the surgery although she states that for the past several months she has been using a front wheeled walker mostly in the morning so she feels very stiff and hurting much. Equipment Owned/DME: Front wheeled walker Subjective: NT. See most recent ACTUARY MANAGER notes. Objective: General Observation: NT. See most recent ACTUARY MANAGER notes. Mental Status: NT. See most recent ACTUARY MANAGER notes. Pain:NT. See most recent ACTUARY MANAGER notes. ROM: Right Upper Extremity: Shoulder Flexion WFL. Shoulder abduction WFL. Elbow flexion WFL. Wrist flexion WFL. Opening and closing of hand WFL. Left Upper Extremity: Shoulder Flexion WFL. Shoulder abduction WFL. Elbow flexion WFL. Wrist flexion WFL. Opening and closing of hand WFL. Right Lower Extremity: Hip flexion WFL. Hip abduction WFL. Knee flexion WFL. Ankle dorsiflexion WFL. Ankle plantarflexion WFL. Left Lower Extremity: Hip flexion WFL. Hip abduction WFL. Knee flexion WFL. Ankle dorsiflexion WFL. Ankle plantarflexion WFL. Strength: Right Upper Extremity: Shoulder flexors 5/5. Shoulder abductors 5/5. Elbow flexors 5/5. Elbow extensors 5/5. Burglar Alarm Mechanic strong. Left Upper Extremity: Shoulder flexors 5/5. Shoulder abductors 5/5. Elbow flexors 5/5. Elbow extensors 5/5. Burglar Alarm Mechanic strong. Right Lower Extremity: Hip flexors 5/5. Hip abductors 5/5. Knee flexors 5/5. Knee extensors 5/5. Ankle dorsiflexors 5/5. Ankle plantarflexors 5/5. Left Lower Extremity:Hip flexors 4/5. Hip abductors 4/5. Knee flexors 4/5. Knee extensors 4/5. Ankle dorsiflexors 5/5. Ankle plantarflexors 5/5. Sensation: Intact as to pain and pressure on bilateral lower extremities. Bed Mobility/Transfers: Rolling independent Supine to sit independent with HOB flat Sit to supine independent with HOB flat Sit to stand supervision using BUE for support, requires use of front wheeled walker Stand to sit supervision using BUE for support, requires use of front wheeled walker Bed to chair supervision using BUE for support, requires use of front wheeled walker Chair to bed supervision using BUE for support, requires use of front wheeled walker Gait: Patient tolerated level surface ambulation of 260 feet using a front wheeled walker with WBAT on the left LE requiring only standby assist with reciprocal swing through gait pattern. Patient also tolerated up-and-down three 4 inch steps and two 6 inch steps while holding onto bilateral rails with step to gait pattern requiring supervision assist. Balance: Static Sitting: Normal Dynamic Sitting: Normal Static Standing: Fair Dynamic Standing: Fair Assessment: Patient demonstrates need for an assistive device for all mobility ADL performance, risk for falls, unsteadiness on feet, and balance impairment resulting from postoperative status. Ángela is a 69-year-old patient with primary osteoarthritis on the left hip and is status post total hip arthroplasty on postoperative day 0. Patient continues to present with clinical signs and symptoms consistent with current/admitting diagnoses that have resulted to mobility limitations, gait instability, generalized weakness, and impairment of motor control as demonstrated by the following impairment level findings: 1. Decreased strength to L LE major muscle groups 2. Impaired standing balance 3. Impaired activity tolerance Impairments continues to contribute to the following functional limitations: 1. Inability to safely ambulate without assistive device and physical assistance 2. Increase completion time for mobility ADL performance 3. Increased fall risk 4. Inability to negotiate steps alone safely Goals: Goals X 3 days 1. Sit-Stand independent NOT MET 2. Stand-Sit independent NOT MET 3. Bed-Chair independent NOT MET 4. Chair-Bed independent NOT MET 5. Independent gait on level surface with use of least restrictive device for at least 300 feet without report of pain nor dyspnea NOT MET 6. Independent stair negotiation while holding onto bilateral rails for at least 10 steps without report of pain nor dyspnea NOT MET 7. Independent with home exercise program NOT MET 8. Good static and dynamic standing balance/tolerance NOT MET DISCHARGE RECOMMENDATIONS: Home when medically cleared. No equipment needs at this time. May benefit from skilled physical therapy services according to orthopedic surgeon's timeline recommendations. Patient will be educated and trained on home exercise program per LESTER exercise protocol in preparation for outpatient physical therapy services. TREATMENT CODE/TIME: NC. Thank you very much for this referral. Mary Gama PT, DPT, CLT [facility] [place], [place]
== END 2019-10-25 16:38 | disposition home or self-care (01) ==
LOC: PDS 10:08 → MS 10:12
PROVIDERS: Admitting Provider Student in an Organized Health Care Education/Training Program; PCP Family Medicine; Visit Provider Student in an Organized Health Care Education/Training Program
PROC: 0SRB04A Replacement of Left Hip Joint with Ceramic on Polyethylene Synthetic Substitute, Uncemented, Open Approach (ICD-10-PCS; CPT 27130; principal; 2019-10-25 07:30)
DX: M16.12 Unilateral primary osteoarthritis, left hip (principal); M25.552 Pain in left hip; Z96.642 Presence of left artificial hip joint; I10 Essential (primary) hypertension
CPT/HCPCS: 27130; C1776; 97162; 97530; NC; 73501; G0378; J0690; J1885; J2405

== ENCOUNTER 2019-10-30 15:33 | Outpatient (CLI) | payer MEDICARE, SELFPAY ==
--- NOTE | 2019-10-30 15:15 | DI.RAD_ITS ---
EXAM: XR HIP LT COMPLETE AP PELVIS CLINICAL HISTORY: 1ST POST OP L LESTER TECHNIQUE: COMPARISON: CR XR PELVIS AP from 07/17/2019 FINDINGS: Two views were obtained and show total left hip joint replacement position. The components appear we ll seated. No other significant bony abnormality seen. IMPRESSION:
== END 2019-10-30 15:53 ==
PROVIDERS: PCP Family Medicine; Referring Provider Family Medicine; Visit Provider Student in an Organized Health Care Education/Training Program
DX: Z96.642 Presence of left artificial hip joint (principal); Z47.1 Aftercare following joint replacement surgery
CPT/HCPCS: 73502

== ENCOUNTER → 2019-11-27 12:59 | Outpatient (BNVA) | payer MEDICARE, SELFPAY | PROVIDERS: PCP Family Medicine; Referring Provider Family Medicine; Visit Provider Student in an Organized Health Care Education/Training Program | DX: Z96.642 Presence of left artificial hip joint (principal); Z47.1 Aftercare following joint replacement surgery; I10 Essential (primary) hypertension ==

== ENCOUNTER 2020-03-12 01:03 | Outpatient (CLI) | payer MEDICARE, SELFPAY ==
--- NOTE | 2020-03-12 12:24 | DI.MAMMO_ITS ---
EXAM: MAMMO SCREENING CLINICAL HISTORY: screening,Z12.39 TECHNIQUE: Mammograms were interpreted according to the usual protocol including computer analysis w Vidible CAD system, tomosynthesis and C-view imaging. COMPARISON: 2009 through 2017 FINDINGS: The breasts are composed of scattered fibroglandular densities, Breast Density category B. No suspicious masses or suspicious microcalcifications are seen. Benign secretory type calcification s and vascular calcifications are noted. No skin thickening or abnormal axillary lymph nodes are seen. There has been no significant change from prior exams. IMPRESSION: BI-RADS Category 2 - Benign Findings Yearly screening mammography is recommended. Breast Density - Category B, scattered fibroglandular densities. A negative radiographic report should not delay biopsy if a dominant or clinically suspicious mass is present. Up to ten percent of cancers are not identified on mammography. A negative report may reinforce clinical impression. Adenosis and dense breasts may obscure an underlying neoplasm. False positive reports average 6 to 10%. Patient will receive a letter notifying them of these results.
== END 2020-03-12 01:23 ==
PROVIDERS: PCP Family Medicine; Visit Provider Family Medicine
DX: Z12.31 Encounter for screening mammogram for malignant neoplasm of breast (principal)
CPT/HCPCS: 77063; 77067

== ENCOUNTER 2020-03-12 01:44 | Outpatient (CLI) | payer MEDICARE, SELFPAY ==
[2020-03-12 13:03] LABS: ALT 27 U/L (14-59); AST 15 U/L (15-37); Albumin 4.1 g/dL (3.4-5.0); Alkaline Phosphatase 65 U/L (46-116); Anion Gap 11.5 mmol/L (3-11); BUN 16 mg/dL (7-18); Bilirubin, Total 0.5 mg/dL (0.2-1.0); CO2 26.5 mmol/L (21.0-32.0); CREATININE 0.84 mg/dL (0.55-1.02); Calcium 9.2 mg/dL (8.5-10.1); Calculated LDL 156 mg/dL (<100); Chloride 103 mmol/L (98-107); Cholesterol 219 mg/dL (<200); Glucose 99 mg/dL (74-106); HDL Cholesterol 36 mg/dL (40-60); Potassium 4.4 mmol/L (3.5-5.1); Sodium 141 mmol/L (136-145); TSH (W/Ref FT4) 2.53 uIU/mL (0.36-3.74); Total Protein 7.7 g/dL (6.4-8.2); Triglyceride 138 mg/dL (<150)
== END 2020-03-12 02:04 ==
PROVIDERS: PCP Family Medicine; Visit Provider Family Medicine
DX: I10 Essential (primary) hypertension (principal); E03.9 Hypothyroidism, unspecified
CPT/HCPCS: 36415; 80053; 80061; 84443

== ENCOUNTER 2020-11-07 10:11 | Outpatient (CLI) | payer MEDICARE, OTHER, SELFPAY ==
--- NOTE | 2020-11-07 09:30 | DI.RAD_ITS ---
Exam(s) XR HIP LT AP LAT ONLY EXAM: XR HIP LT AP LAT ONLY INDICATION: annual f/u L LESTER. COMPARISON: CR XR HIP LT COMPLETE AP PELVIS from 10/30/2019 TECHNIQUE: 2D digital imaging was performed. FINDINGS: There is been no change in the left total hip prosthesis or appearance of the surrounding bone. DATA REPOSITORY: RADIATION DOSE DELIVERED:
== END 2020-11-07 10:12 | disposition home or self-care (01) ==
LOC: DIORS 10:12
PROVIDERS: PCP Family Medicine; Referring Provider Family Medicine; Visit Provider Student in an Organized Health Care Education/Training Program
DX: Z47.1 Aftercare following joint replacement surgery (principal); Z96.642 Presence of left artificial hip joint
CPT/HCPCS: 73502

== ENCOUNTER 2021-03-05 02:45 | Outpatient (CLI) | payer MEDICARE, OTHER, SELFPAY ==
[2021-03-05 15:35] LABS: ALT 29 U/L (14-59); AST 19 U/L (15-37); Albumin 4.1 g/dL (3.4-5.0); Alkaline Phosphatase 61 U/L (46-116); Anion Gap 8.7 mmol/L (3-11); BUN 25 mg/dL (7-18); Bilirubin, Total 0.2 mg/dL (0.2-1.0); CO2 28.3 mmol/L (21.0-32.0); CREATININE 0.8 mg/dL (0.55-1.02); Calcium 9.5 mg/dL (8.5-10.1); Chloride 101 mmol/L (98-107); Glucose 94 mg/dL (74-106); Potassium 5.4 mmol/L (3.5-5.1); Sodium 138 mmol/L (136-145); TSH (W/Ref FT4) 4.62 uIU/mL (0.36-3.74)
[2021-03-05 15:55] LABS: FREE T4 1.09 ng/dL (0.76-1.46)
== END 2021-03-05 02:46 | disposition home or self-care (01) ==
LOC: LBO 02:45
PROVIDERS: PCP Family Medicine; Visit Provider Family Medicine
DX: I10 Essential (primary) hypertension (principal); E03.9 Hypothyroidism, unspecified
CPT/HCPCS: 36415; 80053; 84439; 84443

== ENCOUNTER 2021-03-25 03:40 | Outpatient (CLI) | payer MEDICARE, OTHER, SELFPAY ==
[2021-03-25 12:02] LABS: Potassium 4.7 mmol/L (3.5-5.1)
== END 2021-03-25 03:41 | disposition home or self-care (01) ==
LOC: LBO 03:40
PROVIDERS: PCP Family Medicine; Visit Provider Family Medicine
DX: E87.5 Hyperkalemia (principal)
CPT/HCPCS: 36415; 84132

== ENCOUNTER 2022-03-12 02:35 | Outpatient (CLI) | payer MEDICARE, OTHER, SELFPAY ==
[2022-03-12 14:43] LABS: ALT 71 U/L (14-59); AST 64 U/L (15-37); Albumin 4.3 g/dL (3.4-5.0); Alkaline Phosphatase 62 U/L (46-116); Anion Gap 9.8 mmol/L (3-11); BUN 13 mg/dL (7-18); Bilirubin, Total 0.5 mg/dL (0.2-1.0); CO2 27.2 mmol/L (21.0-32.0); CREATININE 0.8 mg/dL (0.55-1.02); Calcium 9.5 mg/dL (8.5-10.1); Chloride 99 mmol/L (98-107); Estimated GFR 78.72 (mL/min/1.73m2); Glucose 102 mg/dL (74-106); Potassium 4.6 mmol/L (3.5-5.1); Sodium 136 mmol/L (136-145); TSH (W/Ref FT4) 3.91 uIU/mL (0.36-3.74); Total Protein 8.7 g/dL (6.4-8.2); Vitamin B12 539 pg/mL (193-986)
[2022-03-12 15:10] LABS: FREE T4 1.08 ng/dL (0.76-1.46)
== END 2022-03-12 02:36 | disposition home or self-care (01) ==
LOC: LBO 02:35
PROVIDERS: PCP Family Medicine; Visit Provider Family Medicine
DX: E03.9 Hypothyroidism, unspecified (principal); E87.5 Hyperkalemia; I10 Essential (primary) hypertension; E78.5 Hyperlipidemia, unspecified
CPT/HCPCS: 36415; 80053; 82607; 84439; 84443

== ENCOUNTER 2022-06-05 00:10 | Outpatient (CLI) | payer MEDICARE, OTHER, SELFPAY ==
--- NOTE | 2022-06-05 08:30 | DI.DEXA_ITS ---
Exam(s) XR DEXA BONE DENSITY W/WO WILLIAM EXAM: XR DEXA BONE DENSITY W/WO WILLIAM CLINICAL HISTORY: osteoporosis m81.0 TECHNIQUE: BumpTop C densitometer analysis of left hip, lumbar spine and left forearm. COMPARISON: CR XR HIP LT AP LAT ONLY from 11/07/2020 FINDINGS: Lateral view of the thoracic and lumbar spine shows no evidence of compression fractures. Bone mineral density measurements of the lumbar spine correspond to a total T-score of 0.7, in the n ormal range. Bone mineral density measurements of the left hip correspond to a total T-score of -0.8 . The femora l neck T-score is -2.3, in the osteopenic range.. The left forearm bone mineral density measurements correspond to a T-score of the distal 3rd of -0.9 , in the normal range.. IMPRESSION: Osteopenia of the left femoral neck. Normal bone mineral density of the lumbar spine and forearm..
--- NOTE | 2022-06-05 08:30 | DI.MAMMO_ITS ---
Exam(s) MAMMO SCREENING EXAM: MAMMO SCREENING CLINICAL HISTORY: screening z12.39 TECHNIQUE: Bilateral full field digital CC and MLO mammographic images were obtained with 3D tomosyn thesis and utilizing computer aided detection (CAD). COMPARISON: 2012 through 2019 FINDINGS: Left breast: Masses/Architectural Distortion: New spiculated mass upper outer quadrant left breast wi th some architectural distortion. Roughly 3 cm in diameter. Microcalcifications: No suspicious pleomorphic-type are seen. Benign calcifications Skin Thickening/Nipple Retraction: None. Right breast: Masses/Architectural Distortion: None seen. Microcalcifications: No suspicious pleomorphic-type are seen. Benign calcifications Skin Thickening/Nipple Retraction: None. IMPRESSION: Right breast: No significant interval change with no specific features of malignancy noted. Left breast: Spiculated mass upper outer quadrant spot compression views and ultrasound requested for further evaluation. BI-RADS Category 0 - Assessment Incomplete: Need additional imaging evaluation Breast Density - Category B - Scattered areas of fibroglandular density A negative radiographic report should not delay biopsy if a dominant or clinically suspicious mass is present. Up to ten percent of cancers are not identified on mammography. A negative report may reinforce clinical impression. Adenosis and dense breasts may obscure an underlying neoplasm. False positive reports average 6 to 10%. Patient will receive a letter notifying them of these results.
== END 2022-06-05 00:30 ==
LOC: DI 00:10
PROVIDERS: PCP Family Medicine; Visit Provider Family Medicine
DX: Z12.31 Encounter for screening mammogram for malignant neoplasm of breast (principal); M81.0 Age-related osteoporosis without current pathological fracture; R92.8 Other abnormal and inconclusive findings on diagnostic imaging of breast; M85.88 Other specified disorders of bone density and structure, other site
CPT/HCPCS: 77063; 77067; 77080

== ENCOUNTER 2022-06-16 02:30 | Outpatient (CLI) | payer MEDICARE, OTHER, SELFPAY ==
--- NOTE | 2022-06-16 | DI.US_ITS ---
Exam(s) MG MAMMO SCREEN CALL BACK UNI US BREAST LT COMPLETE EXAM: MG MAMMO SCREEN CALL BACK UNI -LEFT AND COMPLETE LEFT BREAST ULTRASOUND CLINICAL HISTORY: F/U ABNL MAMMO, SPICULATED MASS UOQ LT BREAST, R92.8. TECHNIQUE: Unilateral spot mammographic images obtained with 3D tomosynthesisand utilizing computer aided detection (CAD). . Complete LEFT breast Ultrasound was also performed, including all 4 quadrants, the retroareolar regio n, and the ipsilateral axilla. COMPARISON: Prior mammograms were reviewed. This additional imaging was performed due to findings described on the recent screening mammogram of 06/05/2022. FINDINGS: DIAGNOSTIC MAMMOGRAM: Additional mammographic views performed todayreveals a spiculated mass approximately 1 o'clock positi on corresponding to what was seen on the recent screening mammogram and suspicious for malignancy. COMPLETE LEFT BREAST ULTRASOUND: Ultrasound performed today reveals a malignant-appearing mass at the 1 o'clock position, approximatel y 3 cm from the nipple. Wider than taller and poorly defined. Scanning of the ipsilateral axilla reveals slightly prominent but not pathologically appearing lymph nodes. No significant adenopathy. IMPRESSION: 1. Finding at the 1 o'clock position left breast is highly suspicious for malignancy. Biopsy recomm ended. The patient was informed of these findings and recommendations by myself prior to leaving the departm ent today. Dr. Rice called by myself with results and recommendations BI-RADS Category 5 - Highly Suggestive of Malignancy: Biopsy recommended Breast Density - Category B - Scattered areas of fibroglandular density Breast density Category C or D implies that the patient has dense breast tissue. Dense breast tissue can make it harder to find cancer on a mammogram. Dense breast tissue is also associated with an incr eased risk of breast cancer. This information about the result of the mammogram report was provided to the patient to raise their awareness. Use this report when you speak with the patient about their risks for breast cancer, which includes their family history. At that time, you may recommend additional screening tests (Ultrasoun d or MRI) as these tests may add significant information. A negative radiographic report should not delay biopsy if a dominant or clinically suspicious mass is present. Up to ten percent of cancers are not identified on mammography. A negative report may reinforce clinical impression. Adenosis and dense breasts may obscure an underlying neoplasm. False positive reports average 6 to 10%. Patient will receive a letter notifying them of these results.
== END 2022-06-16 02:50 ==
LOC: DI 02:30
PROVIDERS: PCP Family Medicine; Visit Provider Family Medicine
DX: R92.8 Other abnormal and inconclusive findings on diagnostic imaging of breast (principal)
CPT/HCPCS: 76642; 77063; 77067

== ENCOUNTER 2023-01-26 10:15 | Outpatient (CLI) | payer MEDICARE, OTHER, SELFPAY ==
[2023-01-26 12:46] LABS: ALT 50 U/L (14-59); AST 38 U/L (15-37); Albumin 3.6 g/dL (3.4-5.0); Alkaline Phosphatase 58 U/L (46-116); BUN 16 mg/dL (7-18); Bilirubin, Total 0.3 mg/dL (0.2-1.0); CREATININE 0.9 mg/dL (0.55-1.02); Calcium 9.1 mg/dL (8.5-10.1); Chloride 104 mmol/L (98-107); Estimated GFR 67.92 (mL/min/1.73m2); Glucose 112 mg/dL (74-106); Potassium 4.2 mmol/L (3.5-5.1); Sodium 140 mmol/L (136-145); TSH (W/Ref FT4) 3.59 uIU/mL (0.36-3.74); Total Protein 7.5 g/dL (6.4-8.2)
== END 2023-01-26 10:16 | disposition home or self-care (01) ==
LOC: LOS 10:16
PROVIDERS: PCP Family Medicine; Referring Provider Family Medicine; Visit Provider Family Medicine
DX: I10 Essential (primary) hypertension (principal); E03.9 Hypothyroidism, unspecified
CPT/HCPCS: 36415; 80053; 84443

== ENCOUNTER 2023-02-25 11:37 | Emergency (ER) | payer MEDICARE, OTHER, SELFPAY ==
[2023-02-25 11:42] VITALS: BP 158/87; PULSE 99; RESP 18; TEMP 36.6; O2SAT 95
[2023-02-25 12:30] LABS: Abs Immature Grans 0.02 10^3/uL (0.0-0.06); Absolute Basophil Count 0.05 10^3/uL (0.0-0.2); Absolute Eosinophil Count 0.15 10^3/uL (0.0-0.7); Absolute Lymphocyte Count 0.91 10^3/uL (1.2-3.4); Absolute Monocyte Count 0.39 10^3/uL (0.1-0.8); Basophils % 1.1; Eosinophils % 3.3; HCT 48.1 % (36.0-46.0); HGB 15.7 g/dL (11.2-15.7); Immature Grans % 0.4; Lymphocytes % 20.1; MCH 30.3 pg (27.0-33.0); MCHC 32.6 % (32.0-36.0); MCV 93 fL (80-95); Monocytes % 8.6; Neutrophils % 66.5; Platelet Count 230 10^3/uL (130-400); RBC 5.19 10^6/uL (3.93-5.22); RDW 13.4 % (11.7-14.6); RDW-SD 45.6 fL; WBC 4.52 10^3/uL (4.4-10.8)
[2023-02-25] MEDS: Ondansetron 4 MG/2 ML VIAL IVP (12:30)
[2023-02-25] MEDS: fentaNYL 100 MCG/2 ML VIAL 25 MCG IVP (12:31)
[2023-02-25] MEDS: cefTRIAXone 1 GM/50 ML BAG IVPB (12:40)
--- NOTE | 2023-02-25 12:50 | DI.RAD_ITS ---
Exam(s) XR KNEE LT 3V AP,LAT,JANIYA EXAM: XR KNEE LT 3V AP,LAT,JANIYA CLINICAL HISTORY: fall, left knee lac. TECHNIQUE: 2D digital imaging was performed. COMPARISON: No exams were available for comparison FINDINGS: Three views. There is soft tissue avulsion anteriorly over the patella as well as below the patella anterior to th e patellar ligament. There is no evidence of acute fracture or dislocation. No obvious joint effusion. Bone density norm al. No joint space narrowing evident. No chondrocalcinosis. Vascular calcifications noted in the p opliteal artery. IMPRESSION: No acute osseous findings but there is significant soft tissue avulsion anteriorly just above the pat woody, seen on the cross-table lateral view. Correlation with any clinical signs of quadriceps tendon injury is recommended. DATA REPOSITORY: RADIATION DOSE DELIVERED:
--- NOTE | 2023-02-25 12:51 | ED.GENADUL_ITS ---
Discharge Plan Disposition Patient Disposition: Home Condition: Good Discharge Details Clinical Impression: Laceration of knee Primary Care Provider: Priya Rice ED Provider: Mis Pires Home Meds and New Rx's Prescriptions: New cephalexin 500 mg tablet 500 mg PO QID Qty: 28 0RF No Action levothyroxine 50 mcg tablet 50 mcg PO DAILY Qty: 90 12RF lisinopril 20 mg tablet 20 mg PO DAILY Qty: 90 5RF pantoprazole 40 mg tablet,delayed release (DR/EC) 40 mg PO DAILY Qty: 90 4RF rosuvastatin [Crestor] 20 mg tablet 20 mg PO DAILY Qty: 90 4RF Rx Instructions: dispense generic multivitamin 1 EACH tablet 1 tab PO DAILY calcium carbonate-vitamin D3 [Caltrate with Vitamin D3] 1 EACH tablet 1 tab PO DAILY acetaminophen 500 mg tablet 1,000 mg PO Q8H PRN (Reason: pain) Qty: 90 3RF Discharge Instructions Instructions: Laceration (ED) Additional Instructions: [place] out in 10 days; primary care office, urgent care, or in the ED Take the antibiotic we have prescribed until it is all gone. Call your primary care doctor today to schedule an appointment to be seen next week to follow up on your visit here. Orthopedics will call you to schedule an appointment. Return to the emergency department for fever, worsening knee pain or swelling, inability to move your knee, severe pain with movement at your knee, thick green or white discharge from your cut, or if you have any other concerns. Referrals: Priya Rice MD, [place] [Primary Care Provider] - Discharge Data Discharge Date/Time-TO BE ENTERED AT DEPARTURE: 02/25/23 14:27 Medical Decision Making 72yo F with HTN, HLD, presenting after trip and fall with left knee laceration; tripped and fell onto her knees on the carpet. Able to ambulate easily after the event. Vital signs reassuring, on exam she has a large skin tear/avulsion to her left knee above the patella. Subcutaneous tissue and patella visible. No visible involvement of tendon. No leaking of joint fluid, no fluid expressed with palpation of knee. Full strength with extension and flexion at knee. Not concerning for tendon injury. Mechanism low-risk for penetration of joint, no penetrating injury, did not land on any objects. XR independently reviewed, no fracture on my view, agree with radiology read below. CBC reassuring. Discussed with Dr. 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 IV fentanyl for pain control for washout. Wound washed out at bedside with copious amounts of normal saline and repaired. Last tetanus 1 year ago per patient, will not do booster today. Given IV ceftriaxone here and discharged on course of keflex. Will have patient followup with orthopedics next week given extent/depth of injury. Discharged home; discharge instructions including return precautions were reviewed with patient who verbalized understanding. All questions were answered and they are in full agreement with the plan. Imaging Data Radiologic Study: Imaging: X-Ray Radiologist's impression: IMPRESSION: No acute osseous findings but there is significant soft tissue avulsion anteriorly just above the patella, seen on the cross-table lateral view.? Correlation with any clinical signs of quadriceps tendon injury is recommended. Lab Data Lab results reviewed: Yes I reviewed the patient's lab results. Labs: Laboratory Tests Range/Units 02/25/23 02/25/23 02/25/23 12:20 12:20 12:20 WBC (4.4-10.8) 10^3/uL 4.52 RBC (3.93-5.22) 10^6/uL 5.19 Hgb (11.2-15.7) g/dL 15.7 Hct (36.0-46.0) % 48.1 H MCV (80-95) fL 93 MCH (27.0-33.0) pg 30.3 MCHC (32.0-36.0) % 32.6 RDW (11.7-14.6) % 13.4 Plt Count (130-400) 10^3/uL 230 MPV (8.0-11.0) fL 10.0 Immature Gran % 0.4 Neutrophils % 66.5 Lymphocytes % 20.1 Monocytes % 8.6 Eosinophils % 3.3 Basophils % 1.1 Nucleated RBC % (0.0-0.3) % 0.0 Absolute Neutrophils (1.2-6.7) 10^3/uL 3.00 Absolute Lymphocytes (1.2-3.4) 10^3/uL 0.91 L Absolute Monocytes (0.1-0.8) 10^3/uL 0.39 Absolute Eosinophils (0.0-0.7) 10^3/uL 0.15 Absolute Basophils (0.0-0.2) 10^3/uL 0.05 Sodium Cancelled Potassium Cancelled Chloride Cancelled Carbon Dioxide Cancelled Anion Gap Cancelled BUN Cancelled Creatinine Cancelled Est GFR (CKD-EPI 2020) Cancelled Glucose Cancelled Calcium Cancelled Total Bilirubin Cancelled AST Cancelled ALT Cancelled Alkaline Phosphatase Cancelled Total Protein Cancelled Albumin Cancelled Patient ABO/Rh O Positive Antibody Screen NEGATIVE Range/Units 02/25/23 13:09 WBC (4.4-10.8) 10^3/uL RBC (3.93-5.22) 10^6/uL Hgb (11.2-15.7) g/dL Hct (36.0-46.0) % MCV (80-95) fL MCH (27.0-33.0) pg MCHC (32.0-36.0) % RDW (11.7-14.6) % Plt Count (130-400) 10^3/uL MPV (8.0-11.0) fL Immature Gran % Neutrophils % Lymphocytes % Monocytes % Eosinophils % Basophils % Nucleated RBC % (0.0-0.3) % Absolute Neutrophils (1.2-6.7) 10^3/uL Absolute Lymphocytes (1.2-3.4) 10^3/uL Absolute Monocytes (0.1-0.8) 10^3/uL Absolute Eosinophils (0.0-0.7) 10^3/uL Absolute Basophils (0.0-0.2) 10^3/uL Sodium Cancelled Potassium Cancelled Chloride Cancelled Carbon Dioxide Cancelled Anion Gap Cancelled BUN Cancelled Creatinine Cancelled Est GFR (CKD-EPI 2020) Cancelled Glucose Cancelled Calcium Cancelled Total Bilirubin Cancelled AST Cancelled ALT Cancelled Alkaline Phosphatase Cancelled Total Protein Cancelled Albumin Cancelled Patient ABO/Rh Antibody Screen HPI General Mode of arrival: ambulatory . Date/Time Provider Initiated Documentation: 02/25/23 11:46 . Limitations to Documentation: no limitations . Information obtained by: patient . HPI Narrative: 72yo F with HTN, HLD, presenting after trip and fall with left knee laceration. Tripped and fell onto her knees on the carpet, reports skin tear. Able to walk after the event. No head strike or loss of consciousness. In her usual state of health prior to this event. No fevers, chills, rash, nausea, vomiting, abdominal pain, numbness, tingling, weakness, or other concerns. Related Data Home Medications Medication Instructions Recorded Confirmed calcium carbonate 600 mg-vitamin 1 tab PO DAILY 09/01/12 02/25/23 D3 20 mcg (800 unit) tablet (Caltrate with Vitamin D3) multivitamin 1 tab PO DAILY 09/01/12 02/25/23 acetaminophen 500 mg tablet 1,000 mg PO Q8H PRN pain #90 tabs 10/25/19 02/25/23 levothyroxine 50 mcg tablet 50 mcg PO DAILY #90 tab-caps 01/26/23 02/25/23 lisinopril 20 mg tablet 20 mg PO DAILY #90 tab-caps 01/26/23 02/25/23 pantoprazole 40 mg tablet,delayed 40 mg PO DAILY #90 tabs 01/26/23 02/25/23 release rosuvastatin 20 mg tablet (Crestor) 20 mg PO DAILY #90 tab-caps 01/26/23 02/25/23 cephalexin 500 mg tablet 500 mg PO QID #28 tabs 02/25/23 Previous Rx's Medication Instructions Recorded acetaminophen 500 mg tablet 1,000 mg PO Q8H PRN pain #90 tabs 10/25/19 levothyroxine 50 mcg tablet 50 mcg PO DAILY #90 tab-caps 01/26/23 lisinopril 20 mg tablet 20 mg PO DAILY #90 tab-caps 01/26/23 pantoprazole 40 mg tablet,delayed 40 mg PO DAILY #90 tabs 01/26/23 release rosuvastatin 20 mg tablet (Crestor) 20 mg PO DAILY #90 tab-caps 01/26/23 cephalexin 500 mg tablet 500 mg PO QID #28 tabs 02/25/23 Allergies Allergy/AdvReac Type Severity Reaction Status Date / Time No Known Allergies Allergy Unverified 02/25/23 11:45 General Stated Complaint: Laceration CASEY: 4 Review of Systems Narrative: see HPI PFSH All Active Problems (Updated 02/25/23 @ 13:57 by Mis Pires MD) Laceration of knee (Acute) Invasive ductal carcinoma of left breast (Acute ~07/02/22) Ductal carcinoma in-situ, high grade with comedonecrosis Score= 6 Abnormal mammogram (Acute) Hyperkalemia (Acute) Encounter for annual physical exam (Acute) Status post total hip replacement, left (Acute 10/25/19) Hypothyroidism (Chronic 06/03/14) Hypertension (Chronic) Hyperlipidemia (Chronic) Elev transaminase/LDH (Chronic) Alcohol intake above recommended sensible limits (Chronic 11/21/13) elevated GGT, ASL, ALT Medical History (Updated 02/25/23 @ 13:57 by Mis Pires MD) Cervical high risk HPV (human papillomavirus) test positive (03/15/17) NILM/(+)HR HPV 2015, 2016 History of pre-eclampsia History of pre-eclampsia (~1969) HPV in female (12/27/15) Surgical History H/O hemorrhoidectomy Hemorrhoidectomy History of hemorrhoidectomy (Unknown) Family History (Updated 03/01/20 @ 10:28 by Claude Pan) Mother , AGE 91 Essential hypertension Stroke Father , AGE 86 Essential hypertension Stroke Prostate cancer Maternal Grandfather , age 80 Stroke FAMILY HISTORY CAD (coronary artery disease) Sister No problems noted. Sister No problems noted. Brother No problems noted. Brother No problems noted. Son Asthma Daughter No problems noted. Paternal Grandfather , age 60 Stroke Maternal Grandmother , Age 56 Stroke Paternal Grandmother , age 60 Stroke Social History (Updated 04/09/22 @ 07:26 by Rosanna Pedersen) Smoking/Tobacco Use Status: Former Tobacco Use tobacco type: cigarettes Quit Date: 05/31/09 Tobacco: How many years used: 10 Second Hand Exposure: Yes Smoking risk assessment performed?: Yes Alcohol Intake: current Alcohol Intake frequency: a few times a week Alcohol type: wine Drug use: Never Substance use type: does not use Caregiver/Support person: No Household members: none Housing: house Communication Needs: None Do you need help understanding health information?: Rarely Pets and animals: No Sexually active: No Do you think of yourself as: straight/heterosexual Current gender identity: female What is your relationship status?: How often do you talk on the phone with friends or family?: once per week How often do you get together with friends or relatives?: three or more times per week How often do you attend presybeterian or pentecostalism services?: 1-3 times per year Do you belong to any clubs or organized social groups?: yes Panel score (0-1 are the most socially isolated patients): 2 What type of physical activity do you participate in: bicycling Duration: 30-45 minutes/day Frequency: 3-4 times per week Francoise/Zoroastrianism: Buddhism Special francoise needs: No Seatbelt use: always Helmet use: Yes Helmet use: always Drive intox or ride w/intox class a truck driver: No Do you feel safe at home: Yes Do you feel safe in your relationship?: Yes Exam Narrative Exam Narrative: General: Alert, well appearing, well nourished, in no acute distress. Head: Normocephalic, atraumatic Neck: Trachea midline, Neck supple. Cardiac: RRR, no murmurs appreciated Resp: No respiratory distress. CTAB. Abd: Soft, non-distended, nontender : No suprapubic tenderness. No CVA tenderness. Extremities: No deformities. No peripheral edema. 9cm linear avulsion to left knee at patella, subcutaneous tissue and patella visible. No visible involvement of tendon. No leaking of joint fluid, no fluid expressed with palpation of knee. Neurologic: GCS 15. Moves all extremities freely against gravity Course Vital Signs Vital signs: Vital Signs Temperature 36.6 C 02/25/23 11:42 Pulse 99 H 02/25/23 11:42 Respiratory Rate 18 02/25/23 11:42 Blood Pressure 158/87 H 02/25/23 11:42 Pulse Oximetry 95 02/25/23 11:42 Temperature 36.6 C 02/25/23 11:42 Temperature Source Skin 02/25/23 11:42 Pulse 99 H 02/25/23 11:42 Respiratory Rate 18 02/25/23 11:42 Respiratory Effort Normal, Non-Labored 02/25/23 11:52 Blood Pressure 158/87 H 02/25/23 11:42 Blood Pressure Position Sitting 02/25/23 11:42 Pulse Oximetry 95 02/25/23 11:42 Oxygen Delivery Method Room Air 02/25/23 11:42 Oxygen Flow Rate 0 02/25/23 11:42 Pain Level 4 02/25/23 11:42 Lab/Test Results Lab/Test Results: Laboratory Tests Range/Units 02/25/23 12:20 WBC (4.4-10.8) 10^3/uL 4.52 RBC (3.93-5.22) 10^6/uL 5.19 Hgb (11.2-15.7) g/dL 15.7 Hct (36.0-46.0) % 48.1 H MCV (80-95) fL 93 MCH (27.0-33.0) pg 30.3 MCHC (32.0-36.0) % 32.6 RDW (11.7-14.6) % 13.4 Plt Count (130-400) 10^3/uL 230 MPV (8.0-11.0) fL 10.0 Immature Gran % 0.4 Neutrophils % 66.5 Lymphocytes % 20.1 Monocytes % 8.6 Eosinophils % 3.3 Basophils % 1.1 Nucleated RBC % (0.0-0.3) % 0.0 Absolute Neutrophils (1.2-6.7) 10^3/uL 3.00 Absolute Lymphocytes (1.2-3.4) 10^3/uL 0.91 L Absolute Monocytes (0.1-0.8) 10^3/uL 0.39 Absolute Eosinophils (0.0-0.7) 10^3/uL 0.15 Absolute Basophils (0.0-0.2) 10^3/uL 0.05 Procedures Laceration Laceration 1: Amount of anesthesia used (mL): 18 Pre-repair: wound explored, irrigated extensively and deep structures intact Skin layer closed with: other (sheyla) Number of sutures: 19 Subcutaneous layer closed with: chromic gut Size: 5-0 Number of sutures: 9 Technique: simple, interrupted PAWSS Have you Been Recently Intoxicated or Drunk Within the Last 30 days?: No Have you Ever Experienced Previous Episodes of Alcohol Withdrawal?: No Have you ever Experienced Withdrawal Seizures?: No Have you ever Experienced Delirium Tremens(DT)s?: No Have you ever undergone Alcohol Rehabilitation Treatment (i.e, inpt ot outpatient treatment programs)?: No Have you ever Experienced Blackouts?: No Have you ever Combined Alcohol with other Downers within the last 90 days?: No Have you ever Combined Alcohol with any other Substance of Abuse during the last 90 days?: No Positive Blood Alcohol level on Presentation? [PCS.BAL]: No Evidence of Increased Autonomic Activity (i.e. HR>120, tremor, sweating, agitation, nausea)?: No Result: 0
== END 2023-02-25 14:27 | disposition home or self-care (01) ==
PROVIDERS: Emergency Provider Student in an Organized Health Care Education/Training Program; PCP Family Medicine
DX: S81.012A Laceration without foreign body, left knee, initial encounter; W18.09XA Striking against other object with subsequent fall, initial encounter; I10 Essential (primary) hypertension; E78.5 Hyperlipidemia, unspecified
CPT/HCPCS: 13121; 36415; 73562; 80053; 86850; 86900; 86901; 90471; 96365; 96375; 99284; 85025; 99285; J0696; J2405; J3010

== ENCOUNTER 2023-08-27 10:22 | Outpatient (CLI) | payer MEDICARE, OTHER, SELFPAY ==
[2023-08-27 10:17] LABS: Calculated LDL 184 mg/dL (<100); Cholesterol 266 mg/dL (<200); HDL Cholesterol 36 mg/dL (40-60); Triglyceride 231 mg/dL (<150)
== END 2023-08-27 10:23 | disposition home or self-care (01) ==
LOC: LBO 10:23
PROVIDERS: PCP Family Medicine; Visit Provider Family Medicine
DX: I10 Essential (primary) hypertension (principal)
CPT/HCPCS: 36415; 80061

== ENCOUNTER 2024-01-24 03:15 | Outpatient (CLI) | payer MEDICARE, OTHER, SELFPAY ==
[2024-01-24 15:14] LABS: ALT 30 U/L (14-59); AST 21 U/L (15-37); Albumin 3.8 g/dL (3.4-5.0); Alkaline Phosphatase 60 U/L (46-116); Anion Gap 7.3 mmol/L (3-11); BUN 13 mg/dL (7-18); Bilirubin, Total 0.54 mg/dL (0.2-1.0); CO2 30.7 mmol/L (21.0-32.0); CREATININE 0.9 mg/dL (0.55-1.02); Calculated LDL 113 mg/dL (<100); Chloride 101 mmol/L (98-107); Cholesterol 191 mg/dL (<200); Glucose 125 mg/dL (74-106); HDL Cholesterol 39 mg/dL (40-60); Potassium 3.9 mmol/L (3.5-5.1); Sodium 139 mmol/L (136-145); TSH (W/Ref FT4) 5.57 uIU/mL (0.36-3.74); Total Protein 7.9 g/dL (6.4-8.2); Triglyceride 198 mg/dL (<150)
[2024-01-24 15:32] LABS: Calcium 9.7 mg/dL (8.5-10.1); FREE T4 1.01 ng/dL (0.76-1.46)
== END 2024-01-24 03:16 | disposition home or self-care (01) ==
LOC: LBO 03:15
PROVIDERS: PCP Family Medicine; Visit Provider Family Medicine
DX: E03.9 Hypothyroidism, unspecified (principal); I10 Essential (primary) hypertension
CPT/HCPCS: 36415; 80053; 80061; 84439; 84443

== ENCOUNTER 2024-04-11 05:01 | Outpatient (CLI) | payer MEDICARE, OTHER, SELFPAY ==
[2024-04-12 19:45] LABS: Hepatitis C Ab w Rflx HCV PCR Negative (Negative)
== END 2024-04-11 05:02 | disposition home or self-care (01) ==
LOC: LBO 05:01
PROVIDERS: PCP Family Medicine; Visit Provider Family Medicine
DX: Z11.59 Encounter for screening for other viral diseases (principal)
CPT/HCPCS: 36415; 86803

== ENCOUNTER 2025-01-17 03:17 | Outpatient (CLI) | payer MEDICARE, OTHER, SELFPAY ==
[2025-01-17 10:52] LABS: ALT 30 U/L (14-59); AST 25 U/L (15-37); Albumin 3.8 g/dL (3.4-5.0); Alkaline Phosphatase 56 U/L (46-116); Anion Gap 10.0 mmol/L (3-11); BUN 14 mg/dL (7-18); Bilirubin, Total 0.5 mg/dL (0.2-1.0); CO2 26.0 mmol/L (21.0-32.0); Calcium 8.8 mg/dL (8.5-10.1); Calculated LDL 149 mg/dL (<100); Chloride 102 mmol/L (98-107); Cholesterol 214 mg/dL (<200); Estimated GFR 77.27 (mL/min/1.73m2); Glucose 110 mg/dL (74-106); HDL Cholesterol 32 mg/dL (>or=50); Potassium 4.5 mmol/L (3.5-5.1); Sodium 138 mmol/L (136-145); TSH (W/Ref FT4) 6.15 uIU/mL (0.36-3.74); Total Protein 7.8 g/dL (6.4-8.2); Triglyceride 165 mg/dL (<150); Vitamin B12 612 pg/mL (193-986)
== END 2025-01-17 03:18 | disposition home or self-care (01) ==
LOC: LBO 03:17
PROVIDERS: PCP Family Medicine; Visit Provider Family Medicine
DX: I10 Essential (primary) hypertension (principal); K29.60 Other gastritis without bleeding; E03.9 Hypothyroidism, unspecified
CPT/HCPCS: 36415; 80053; 80061; 82607; 84439; 84443

== ENCOUNTER 2025-03-01 14:42 | Outpatient (CLI) | payer MEDICARE, OTHER, SELFPAY ==
--- NOTE | 2025-03-01 14:30 | DI.RAD_ITS ---
Exam(s) XR HIP RT COMPLETE AP PELVIS EXAM: XR HIP RT COMPLETE AP PELVIS CLINICAL HISTORY: RIGHT HIP PAIN. TECHNIQUE: 2D digital imaging was performed. Two views COMPARISON: CR XR HIP LT AP LAT ONLY from 11/07/2020 CR XR DEXA BONE DENSITY W/WO WILLIAM from 06/05/2022 FINDINGS: BONES: No acute fracture is present. No bony destructive lesion is seen. JOINTS: No dislocation present. The right hip joint space is maintained. There is mild spurring at the acetabulum. The left hip prosthesis is unchanged in alignment. No abnormal surrounding bony lucencies. SOFT TISSUE: Vascular calcifications. IMPRESSION: No acute abnormality. DATA REPOSITORY: RADIATION DOSE DELIVERED:
== END 2025-03-01 14:43 | disposition home or self-care (01) ==
LOC: DIORS 14:42
PROVIDERS: PCP Family Medicine; Referring Provider Family Medicine; Visit Provider Student in an Organized Health Care Education/Training Program
DX: M70.61 Trochanteric bursitis, right hip (principal); M25.551 Pain in right hip; Z96.642 Presence of left artificial hip joint
CPT/HCPCS: 99213; 73502